=== PATIENT | female | born 1950 | race African-American/Black ===

== ENCOUNTER 2016-12-14 05:28 | Observation (INO) | payer MEDICARE, MEDICAID ==
[~2016-12-14] VITALS: Ht 154.9 cm; Wt 71.2 kg
[~2016-12-14 05:28] MED LIST: HYDR1CAP2; LISI10TA5
[2016-12-14] MEDS ORDERED: SODIUM CHLORIDE 0.9% 1,000 ML IV SCH (06:40)
[2016-12-14] MEDS ORDERED: SKIN ADHESIVE 0.7 GM EA TOP ONE (07:03)
[2016-12-14] MEDS ORDERED: BACITRACIN ZINC 15GM TUBE TOP ONE (07:03)
[2016-12-14] MEDS ORDERED: METHYLENE BLUE 50 MG/10 ML AMP IV ONE (07:03)
[2016-12-14] MEDS ORDERED: NORMAL SALINE 0.9% 10 ML SYR ONE (07:04)
[2016-12-14] MEDS ORDERED: BUPIVACAINE HCL 0.5% (5MG/ML) 50ML ONE (07:04)
[2016-12-14] MEDS ORDERED: BACITRACIN 50,000 UNITS/VIAL ONE (07:04)
[2016-12-14] MEDS ORDERED: TRAM50TA3 PO (07:15)
[2016-12-14] MEDS ORDERED: OXYC10TA48 PO (07:15)
[2016-12-14] MEDS ORDERED: CARI350T PO (07:15)
[2016-12-14] MEDS ORDERED: FENTANYL CITRATE/PF 50MCG/ML 2ML VIAL ONE (07:34)
[2016-12-14] MEDS ORDERED: MIDAZOLAM HCL 2 MG/2 ML VIAL ONE (07:34)
[2016-12-14 07:54] LABS: GLUCOSE URINE NEGATIVE (NEGATIVE); KETONES URINE NEGATIVE (NEGATIVE); LEUKOCYTE ESTERASE URINE TRACE (NEGATIVE); NITRITE URINE NEGATIVE (NEGATIVE); OCCULT BLOOD URINE NEGATIVE (NEGATIVE); PROTEIN URINE NEGATIVE (NEGATIVE); SPECIFIC GRAVITY URINE 1.015 (1.005-1.030); UROBILINOGEN URINE 0.2 E.U./dL (0.2-1.0)
[2016-12-14 07:56] LABS: CLARITY URINE CLEAR (CLEAR); COLOR URINE YELLOW (YELLOW)
[2016-12-14] MEDS ORDERED: MEPERIDINE HCL/PF 25MG/ML CPJ IV PRN (08:00)
[2016-12-14] MEDS ORDERED: ONDANSETRON HCL 4MG/2ML VIAL IV PRN ×3 (08:00→10:00)
[2016-12-14] MEDS ORDERED: LABETALOL HCL 20MG/4ML CARPUJECT IV PRN ×2 (08:00)
[2016-12-14] MEDS ORDERED: HYDROMORPHONE HCL/PF 2MG/ML CPJ IV PRN (08:00)
[2016-12-14] MEDS ORDERED: HYDROMORPHONE HCL/PF 2MG/ML (OR) ONE (08:21)
[2016-12-14] MEDS ORDERED: CEFAZOLIN SODIUM 1000MG/VIAL ONE (08:27)
[2016-12-14] MEDS ORDERED: LIDOCAINE HCL 1% 20ML VIAL (Pyxis) INJ ONE (08:27)
[2016-12-14] MEDS ORDERED: PROPOFOL 200MG/20ML VIAL IV ONE (08:27)
[2016-12-14] MEDS ORDERED: SODIUM CHLORIDE 0.9% 10ML VIAL ONE (08:27)
[2016-12-14] MEDS ORDERED: LABETALOL HCL 5MG/ML VIAL 20ML IV ONE (08:27)
[2016-12-14] MEDS ORDERED: ONDANSETRON HCL 4MG/2ML VIAL ONE (08:27)
[2016-12-14] MEDS ORDERED: DEXAMETHASONE 4MG/ML 1ML VIAL ONE (08:27)
[2016-12-14] MEDS: HYDROMORPHONE HCL/PF 2MG/ML CPJ IV PRN ×4 (09:43→10:04)
[2016-12-14] MEDS ORDERED: DEXT 5%/0.45% NACL KCL 20MEQ/L 1,000 ML IV SCH (09:49)
[2016-12-14] MEDS ORDERED: MORPHINE SULFATE 2 MG/ML CPJ (NOT FOR IM USE) IV PRN (10:00)
[2016-12-14] MEDS ORDERED: HYDROCODONE/ACETAMINOPHEN 5/325MG TABLET PO PRN ×2 (10:00)
[2016-12-14] MEDS ORDERED: MORPHINE SULFATE 4 MG/ML CPJ (NOT FOR IM USE) IV PRN (10:00)
[2016-12-14] MEDS: MEPERIDINE HCL/PF 25MG/ML CPJ IV PRN ×2 (10:25→12:37)
[2016-12-14 14:20] VITALS: BP 107/60
[2016-12-14 16:00] VITALS: BP 107/60
[2016-12-14] MEDS: MORPHINE SULFATE 4 MG/ML CPJ (NOT FOR IM USE) IV PRN ×2 (17:02→21:52)
[2016-12-14 20:00] VITALS: BP 116/61
[2016-12-15] VITALS: BP 109/65
[2016-12-15 04:00] VITALS: BP 118/62
[2016-12-15] MEDS: MORPHINE SULFATE 4 MG/ML CPJ (NOT FOR IM USE) IV PRN (04:25)
[2016-12-15 09:34] VITALS: BP 111/60
== END 2016-12-15 10:35 | disposition home or self-care (01) ==
LOC: OR 05:28 → INTOOBSV 05:29 → 6EST 05:29
PROVIDERS: ADMIT Surgery; ATTEND Surgery
DX: C50.911 Malignant neoplasm of unspecified site of right female breast (principal)
CPT/HCPCS: 19305; 36590; 81001; 88300; 88307; 88309; 96374; 96376; A4216; G0378; J0690; J1100; J1170; J2175; J2250; J2270; J2405; J3010; J3490; J7030; J2704; Q9968

== ENCOUNTER → 2017-03-23 | Day surgery (SDC) | payer MEDICARE, MEDICAID ==
[~2017-03-23] MED LIST changes: +CARI350T PO; +LIDOCAINE 1%/EPI 1:200,000 10 ML VIAL IJ ONE; +OXYC10TA48 PO; +SODIUM BICARBONATE 4% (2.4MEQ) 5ML VIAL IV ONE; +TRAM50TA3 PO
== END | disposition home or self-care (01) ==
LOC: RAD 10:42
PROVIDERS: ATTEND Radiology Radiation Oncology
DX: L76.34 Postprocedural seroma of skin and subcutaneous tissue following other procedure (principal); Z90.11 Acquired absence of right breast and nipple; Z85.3 Personal history of malignant neoplasm of breast; Y83.8 Other surgical procedures as the cause of abnormal reaction of the patient, or of later complication, without mention of misadventure at the time of the procedure
CPT/HCPCS: 19000; 76942; 88108; J3490